=== PATIENT | female | born 1970 | race Caucasian/White ===

== ENCOUNTER 2017-04-25 18:42 | Emergency (ER) | payer OTHER ==
[~2017-04-25] VITALS: Ht 175.3 cm; Wt 96.0 kg
[2017-04-25 18:59] VITALS: BP 128/86
[2017-04-25] MEDS ORDERED: KETOROLAC 30 MG/1 ML IM ONE (19:30)
[2017-04-25] MEDS ORDERED: HYDROcodone/APAP 5/325 TABLET PO ONE (19:30)
[2017-04-25] MEDS ORDERED: DIAZEPAM 5 MG TABLET PO ONE (19:30)
[2017-04-25] MEDS ORDERED: KETOROLAC 30 MG/1 ML ONE (19:43)
[2017-04-25] MEDS ORDERED: HYDROcodone/APAP 5/325 TABLET ONE (19:43)
[2017-04-25] MEDS ORDERED: DIAZEPAM 5 MG TABLET ONE (19:43)
== END 2017-04-25 20:44 | disposition home or self-care (01) ==
LOC: ED 20:35
DX: S39.012A Strain of muscle, fascia and tendon of lower back, initial encounter (principal); M51.16 Intervertebral disc disorders with radiculopathy, lumbar region; X58.XXXA Exposure to other specified factors, initial encounter; Y93.89 Activity, other specified; Y92.89 Other specified places as the place of occurrence of the external cause; Y99.8 Other external cause status
CPT/HCPCS: 72110; 99284